=== PATIENT | female | born 1960 ===

== ENCOUNTER → 2022-04-01 15:11 | Outpatient (CLI) | payer OTHER, SELFPAY ==
--- NOTE | ~2022-04-01 | MR_ITS ---
EXAMINATION: MR knee LT wo con DATE: 04/01/2022 18:05 INDICATION: Left knee pain and swelling since fall in January. Untreated meniscal tear new symptoms. Rul e out loose body. TECHNIQUE: Magnetic resonance imaging (MRI) of the left knee was performed without intravenous contra st. Sequences included axial PD-weighted FS FSE, coronal PD-weighted FSE and PD-weighted FS FSE, sagi ttal PD-weighted FSE, and sagittal T2-weighted FS FSE. COMPARISON: None. FINDINGS: Medial compartment: No acute or displaced medial meniscal tear. Undersurface irregularity with subtle linear PD signal ma y reflect a healed or mostly healed posterior horn tear. Moderate diffuse cartilage thinning. Mild os teophytosis. Lateral compartment: Intact lateral meniscus. Mild diffuse cartilage thinning. Mild osteophytosis. Patellofemoral compartment: Mild cartilage thinning and partial thickness signal abnormality on the median ridge. Intact retinacu la. Ligaments and tendons: ACL, PCL, MCL, and LCL are intact. Mild abnormal signal superficial and deep to the IT band. Remainin g flexor and extensor tendons are intact. Fluid: Small joint effusion. Osseous/other: Subchondral cyst formation in the anteromedial aspect of the medial tibial plateau. No suspicious foc al or diffuse marrow signal. IMPRESSION: 1. No acute or displaced meniscal tear. 2. No loose joint body detected. 3. Mild inflammatory changes about the IT band as can be seen with IT band syndrome in the appropriat e clinical context. Reviewed, dictated and finalized at location [facility]. IMPRESSION: 1. No acute or displaced meniscal tear. 2. No loose joint body detected. 3. Mild inflammatory changes about the IT band as can be seen with IT band synd ana paula in the appropriate clinical context.
== END ==
PROVIDERS: PCP Internal Medicine; Visit Provider Orthopaedic Surgery
DX: M25.562 Pain in left knee (principal); G89.29 Other chronic pain
CPT/HCPCS: 73721